=== PATIENT | male | born 1945 | race Caucasian/White ===

== ENCOUNTER 2023-03-31 08:34 | Outpatient (CLI) | payer OTHER, SELFPAY ==
--- NOTE | 2023-03-31 09:05 | ECG_ITS ---
Measurements Intervals [place] Rate: 54 P: 43 TX: 216 QRS: -1 QRSD: 114 T: 56 QT: 449 QTc: 426 Interpretive Statements SINUS BRADYCARDIA WITH FIRST DEGREE AV BLOCK ANTEROSEPTAL MYOCARDIAL INFARCTION , OF INDETERMINATE AGE [40+ ms Q WAVE IN V1-V4] ABNORMAL ECG NO PREVIOUS ECG AVAILABLE FOR COMPARISON Electronically Signed On 03-31-2023 11:11:37 CDT by Mic Michelle M.D.
[2023-03-31 09:49] LABS: Basophils Percent Auto 0.7 % (0.2-1.2); Eosinophils Absolute Auto 0.2 K/mm3 (0-0.3); Eosinophils Percent Auto 3.4 % (0-4.4); Hematocrit 45.4 % (42.0-52.0); Hemoglobin 14.8 g/dL (14.0-18.0); Immature Granulocyte Absolute 0.02 K/mm3 (0.00-0.031); Immature Granulocyte Percent A 0.3 % (0-0.5); Lymphocytes Absolute Auto 1.84 K/mm3 (0.9-3.2); Lymphocytes Percent Auto 30.1 % (18.3-44.2); Mean Corpuscular HGB Conc 32.6 g/dl (32-36); Mean Corpuscular Hemoglobin 30.3 pg (26-34); Mean Corpuscular Volume 92.8 fl (80-100); Mean Platelet Volume 12.2 fl (7.4-10.4); Monocytes Absolute Auto 0.5 K/mm3 (0.1-0.6); Monocytes Percent Auto 7.5 % (2.6-8.5); Neutrophils Absolute Auto 3.5 K/mm3 (1.3-6.7); Platelet Count Result 146 k/mm3 (150-375); Red Blood Count 4.89 M/mm3 (4.6-6.20); White Blood Count 6.1 K/mm3 (4.5-10.0)
[2023-03-31 09:56] LABS: Appearance Urine Clear (Clear); Bacteria Urine None Seen /hpf; Bilirubin Urine Negative (Negative); Blood Urine Negative (Negative); Color Urine Yellow (Yellow); Glucose Urine UA Negative (Negative); Ketones Urine Negative (Negative); Leukocyte Esterase Ur Negative LEU/UL (Negative); Nitrate Urine Negative (Negative); Non Pathogenic Casts 0-2; Protein Urine Trace mg/dL (Negative); RBC Urine 0-2 /hpf (0-2); Squamous Epithelial Cell Urine None seen /hpf (Few); Urobilinogen Urine 0.2 mg/dL (<2.0); WBC Urine 0-5 /hpf
[2023-03-31 10:01] LABS: Anion Gap 6 mmol/L (8-16); Blood Urea Nitrogen 21 mg/dL (9-20); Calcium 9.1 mg/dL (8.4-10.2); Carbon Dioxide 30 mmol/L (22-30); Chloride 102 mmol/L (98-107); Estimated Glomerular Filt Rate > 60; Glucose 119 mg/dL (65-110); Potassium 3.3 mmol/L (3.4-5.0); Sodium 138 mmol/L (137-145)
[2023-03-31 10:14] LABS: Add Urine Microscopic? YES
== END 2023-03-31 08:35 | disposition home or self-care (01) ==
PROVIDERS: PCP Family Medicine Sports Medicine; Visit Provider Orthopaedic Surgery
DX: M17.11 Unilateral primary osteoarthritis, right knee (principal); I10 Essential (primary) hypertension; R53.83 Other fatigue
CPT/HCPCS: 36415; 80048; 81001; 85025; 93005

== ENCOUNTER 2023-05-21 09:47 | Outpatient (CLI) | payer OTHER, SELFPAY ==
[2023-05-21 11:11] LABS: Basophils Absolute Auto 0.1 K/mm3 (0.0-0.1); Basophils Percent Auto 0.7 % (0.2-1.2); Eosinophils Absolute Auto 0.1 K/mm3 (0-0.3); Eosinophils Percent Auto 1.7 % (0-4.4); Hematocrit 46.4 % (42.0-52.0); Hemoglobin 15.3 g/dL (14.0-18.0); Immature Granulocyte Absolute 0.01 K/mm3 (0.00-0.031); Immature Granulocyte Percent A 0.1 % (0-0.5); Lymphocytes Absolute Auto 2.22 K/mm3 (0.9-3.2); Lymphocytes Percent Auto 29.7 % (18.3-44.2); Mean Corpuscular Hemoglobin 30.4 pg (26-34); Mean Corpuscular Volume 92.1 fl (80-100); Mean Platelet Volume 11.9 fl (7.4-10.4); Monocytes Absolute Auto 0.7 K/mm3 (0.1-0.6); Monocytes Percent Auto 9.2 % (2.6-8.5); Neutrophils Absolute Auto 4.4 K/mm3 (1.3-6.7); Neutrophils Percent Auto 58.6 % (45.5-73.1); Platelet Count Result 158 k/mm3 (150-375); Red Blood Count 5.04 M/mm3 (4.6-6.20); Red Cell Distribution Width 13.1 % (11.5-14.5); White Blood Count 7.5 K/mm3 (4.5-10.0)
[2023-05-21 11:19] LABS: Appearance Urine Clear (Clear); Bilirubin Urine Negative (Negative); Blood Urine Negative (Negative); Color Urine Yellow (Yellow); Glucose Urine UA Negative (Negative); Ketones Urine Negative (Negative); Leukocyte Esterase Ur Negative LEU/UL (Negative); Nitrate Urine Negative (Negative); Protein Urine Negative (Negative); Specific Grav Ur 1.012 (1.001-1.035); Urobilinogen Urine 0.2 mg/dL (<2.0); pH Urine 7.5 (5.0-9.0)
[2023-05-21 11:23] LABS: Hemoglobin A1C 5.9 % (<5.7)
[2023-05-21 11:25] LABS: Prothrombin Time 13.1 Seconds (11.1-14.7)
[2023-05-21 11:26] LABS: Partial Thromboplastin Time 27.5 SECONDS (22.3-36.8); Potassium 3.7 mmol/L (3.4-5.0)
[2023-05-21 11:27] LABS: Urine Cotinine NEGATIVE
[2023-05-21 11:37] LABS: Add Urine Microscopic? NO; Albumin Level 4.4 g/dL (3.5-5.1); Anion Gap 6 mmol/L (8-16); Blood Urea Nitrogen 24 mg/dL (9-20); Calcium 9.5 mg/dL (8.4-10.2); Carbon Dioxide 32 mmol/L (22-30); Chloride 101 mmol/L (98-107); Estimated Glomerular Filt Rate > 60; Glucose 112 mg/dL (65-110); Sodium 139 mmol/L (137-145)
== END 2023-05-21 09:48 | disposition home or self-care (01) ==
LOC: ANHSURGERY 09:50
PROVIDERS: PCP Family Medicine Sports Medicine; Visit Provider Orthopaedic Surgery
DX: M17.11 Unilateral primary osteoarthritis, right knee (principal); Z01.818 Encounter for other preprocedural examination
CPT/HCPCS: 80048; 80307; 81003; 82040; 83036; 85025; 85610; 85730; 87081

== ENCOUNTER 2023-05-28 09:27 | Outpatient (CLI) | payer OTHER, SELFPAY ==
--- NOTE | 2023-05-28 | EST_ITS ---
Patient Info Name: Lei Renee Age: 78 years : 1945 Gender: Male Ht: 72 in Wt: 200 lbs BSA: 2.16 m2 HR: 54 bpm BP: 177 / 86 mmHg Heart Rhythm: Sinus Rhythm Exam Date: 05/28/2023 10:31 AM Exam Location: Echo Lab Patient Status: Outpatient Admit Date: 05/28/2023 Staff Ordering Physician: Paulette, Albaro Malcolm MD Attending Provider: Paulette, Albaro Malcolm MD Exercise Technologist: Kayla Marquis RDCS Nurse: Qing Ty APN Exam Type: CA stress malachi w NM Study Info A regadenoson stress test was performed. Summary 1. Occasional PVCs. 2. No abnormal ST/T wave changes diagnostic of ischemia with Lexiscan. 3. Please correlate with nuclear medicine images, reported separately. 4. Stress test supervised by Qing Ty NP. Stress test interpreted by Ronit Wood MD. Protocol: Lexiscan Stress ECG Details Stage: REST Duration (min): 2 min : 19 sec HR (bpm): 54 SBP (mmHg): 177 DBP (mmHg): 86 Stage: REST Duration (min): 10 min : 0 sec HR (bpm): 58 SBP (mmHg): 177 DBP (mmHg): 86 Stage: STAGE 1 Duration (min): 1 min : 0 sec HR (bpm): 59 SBP (mmHg): 195 DBP (mmHg): 98 Stage: RECOVERY Duration (min): 1 min : 0 sec HR (bpm): 73 SBP (mmHg): 195 DBP (mmHg): 98 Stage: RECOVERY Duration (min): 2 min : 0 sec HR (bpm): 69 SBP (mmHg): 195 DBP (mmHg): 98 Stage: RECOVERY Duration (min): 3 min : 0 sec HR (bpm): 72 SBP (mmHg): 195 DBP (mmHg): 98 Stage: RECOVERY Duration (min): 4 min : 0 sec HR (bpm): 70 SBP (mmHg): 181 DBP (mmHg): 88 Stage: RECOVERY Duration (min): 5 min : 0 sec HR (bpm): 65 SBP (mmHg): 171 DBP (mmHg): 86 Stage: RECOVERY Duration (min): 6 min : 0 sec HR (bpm): --- SBP (mmHg): 171 DBP (mmHg): 86 Stage: RECOVERY Duration (min): 7 min : 0 sec HR (bpm): 65 SBP (mmHg): 171 DBP (mmHg): 86 Stage: RECOVERY Duration (min): 7 min : 36 sec HR (bpm): 63 SBP (mmHg): 171 DBP (mmHg): 86 Rest HR: 58 bpm Peak HR: 74 bpm Rest Sys BP: 177 mmHg Peak Sys BP: 195 mmHg Max Pred HR: 144 bpm % Max Pred HR: 51 % Target HR: 122 bpm Max RPP: 14,430 bpm*mmHg Total Time: 1 min : 0 sec Rest Bloom BP: 86 mmHg Peak Bloom BP: 98 mmHg Total Dose: 0.4 mg Resting ECG Sinus bradycardia. Stress ECG Sinus rhythm. No abnormal ST/T wave changes diagnostic of ischemia with Lexiscan. Arrhythmias Occasional PVCs. Report Signatures
--- NOTE | ~2023-05-28 | NM_ITS ---
EXAMINATION: NM malachi stress w perfusion DATE: 05/28/2023 11:57 INDICATION: Abnormal EKG for preoperative evaluation TECHNIQUE: Rest images were obtained following intravenous administration of 10 mCi Tc99m tetrofosmin (Myoview). The patient was infused intravenously with Lexiscan (Regadenoson). Then, 31 mCi Tc99m tet rofosmin (Myoview) was administered intravenously, and stress images were obtained. Data was reconstr ucted into short axis and horizontal and vertical long axis SPECT images. Gated SPECT images were als o obtained. COMPARISON: None. FINDINGS: There is no definite reversible or fixed perfusion abnormality to suggest ischemia or infar ction. There is normal left ventricular chamber size, wall motion and ejection fraction. Left ventr icular ejection fraction measures 66%. IMPRESSION: 1. Normal myocardial perfusion at rest and during stress. 2. Left ventricular ejection fraction measuring 66%. Reviewed, dictated and finalized at location A. [facility]
== END 2023-05-28 09:28 | disposition home or self-care (01) ==
PROVIDERS: PCP Family Medicine Sports Medicine; Visit Provider Family Medicine Sports Medicine
DX: R94.31 Abnormal electrocardiogram [ECG] [EKG] (principal)
CPT/HCPCS: 78452; 93017; A9502; J2785

== ENCOUNTER 2023-06-04 01:57 | Day surgery (SDC) | payer OTHER, SELFPAY ==
[2023-05-21 09:58] VITALS: BMI 27.6
--- NOTE | 2023-05-21 10:26 | PC.NURSE ---
Report to the Outpatient Waiting Room, entrance under the green pavilion located off [facility], at time ___0830____ on date _06/04/23 . Planned Procedure Time: _1030 . Time changes happen often and if your time is changed the preop area will call you the afternoon before. - You and your visitor will be asked to self-screen and do not enter if you have any COVID symptoms. - A mask is optional within the hospital at this time. Patients may have clear liquids (water, carbonated beverages, clear teas, apple juice) until 3 hours prior to surgery (7:30AM)with a maximum of 20 ounces. - No food from midnight until time of surgery - Infants may have breast milk until 4 hours before surgery, infant formula 6 hours prior to surgery. - Children will be allowed to drink immediately following surgery. If applicable, please bring a bottle or sippy cup to assist with drinking. Juice, water, soda, and popsicles are readily available. For infants on formula, please bring formula the day of surgery. Pacifiers are allowed. Take the following medications with a SIP of water the morning of surgery: ____AMLODIPINE, LEVOTHYROXINE DO NOT STOP ANY OF YOUR OTHER PRESCRIPTION MEDICATIONS PRIOR TO SURGERY ?EXCEPT THE FOLLOWING Medications to discontinue per physician __ASPIRIN AND IBUPROFEN PER DR MARSHALL. ALL VITAMINS AND SUPPLEMENTS 3 DAYS PRE OP.LAST DOSE 05/31/23 Date to take last dose Please no make-up, nail niuean, hairspray, perfume, deodorant, or body powder the day of surgery. No jewelry (including any body piercings) or valuables the day of surgery, leave them at home. Please take a shower or bath the night before, or the morning of, surgery with an antibacterial soap. Wear comfortable, loose fitting clothing. Children are encouraged to wear pajamas. - Jewelry must be removed prior to entering the operating room. Rings and piercings that are not removed may be cut off. - The hospital will not accept responsibility for valuables. - Please leave all valuables, including medications, at home the day of surgery. If you are going home after surgery, a licensed driver examiner must drive you home. - NO public transportation without another adult if you receive anesthesia. - We recommend that an adult stay with you for 24 hours following discharge. - We also recommend that you do not drive, make important decision, drink alcoholic beverages, or take any drugs that were not prescribed by your health care provider for at least 24 hours after your discharge time. For Pediatric surgeries, we recommend two adults accompany the child home. Follow any additional instructions given to you from your surgeon. If you or anyone in your household have experienced Covid symptoms in the past week, please notify your surgeon or the nurse liaison at the phone number below for possible testing. VERBAL AND WRITTEN instructions given to ___PT and asked if any additional questions and then verbalized understanding. Patient advised to call surgeon office or pre surgery nurse liaison [phone] if any additional questions.
[2023-05-21 11:16] VITALS: BP 182/82; PULSE 63; RESP 18; TEMP 37.4; O2SAT 98
[2023-06-04] VITALS (10 sets, daily range): BP systolic 139–165; BP diastolic 79–90; PULSE 60–95; RESP 12–18; TEMP 36.1–36.8; O2SAT 94–99
--- NOTE | ~2023-06-04 | XR_ITS ---
XR_[id number]_CR DATE: 06/04/2023 12:24 INDICATION: Postoperative examination TECHNIQUE: Postoperative AP and crosstable lateral views of right knee COMPARISON: None FINDINGS: Skin joshua are noted anteriorly. There is right total knee arthroplasty without patellar resurfacing. There is expected postoperative intra-articular air and subcutaneous emphysema. No fracture, dislocation, periosteal reaction or bone destruction. Femoral and popliteal artery calcification. IMPRESSION: Status post right total knee arthroplasty Reviewed, dictated and finalized at Location A. Reviewed, dictated and finalized at location B. [facility] [employer]
--- NOTE | 2023-06-04 07:16 | WPDHPUPDATE1 ---
History and Physical Update Update Date/Time: 06/04/23 07:16 History and Physical has been reviewed, including an updated exam of the patient. There are NO changes in the patient's condition. Risks, benefits, and alternatives have been discussed and questions answered. Patient agrees to proceed with procedure.
[2023-06-04] MEDS: ACETAMINOPHEN 500 MG TABLET 1000 MG PO (09:00)
[2023-06-04] MEDS: LACTATED RINGERS 1,000 ML 30 ML IV CONT (09:20)
[2023-06-04] MEDS: TRANEXAMIC ACID 1,000MG/ISO100 1,000 MG/100 ML BAG 200 MG IVPB (09:30)
--- NOTE | 2023-06-04 09:31 | WPDANESEPPF ---
Anes - Initial Pre Proc Eval Procedure: Operation Date: 06/04/23 10:30 Proposed Procedures p Right Total Knee Arthroplasty - Nicolás Schroeder MD Date/Time: 06/04/23 09:31 Surgeon: Nicolás Schroeder MD Pre Op Diagnosis: right knee djd Patient Data Age: 78 Gender: M Height: 1.83 m Weight: 92.4 kg Last Vital Signs Temp 37.4 C 05/21/23 11:16 Pulse 63 05/21/23 11:16 Resp 18 05/21/23 11:16 BP 182/82 H 05/21/23 11:16 Pulse Ox 98 05/21/23 11:16 O2 Del Method Room Air 05/21/23 11:16 Allergies Allergy/AdvReac Type Severity Reaction Status Date / Time No Known Allergies Allergy Verified 06/04/23 08:51 Home Medications Medication Instructions Recorded Confirmed Type amlodipine 5 mg tablet 7.5 mg PO DAILY 05/14/22 06/04/23 History benazepril 40 mg tablet 40 mg PO BID 05/14/22 06/04/23 History cholecalciferol (vitamin D3) 25 25 mcg PO DAILY 05/14/22 06/04/23 History mcg (1,000 unit) capsule hydrochlorothiazide 25 mg tablet 25 mg PO DAILY 05/14/22 06/04/23 History levothyroxine 150 mcg capsule 150 mcg PO DAILY 05/14/22 06/04/23 History omeprazole 20 mg capsule,delayed 20 mg PO DAILY 05/14/22 06/04/23 History release trazodone 50 mg tablet 25 mg PO QHS PRN Insomnia 05/14/22 06/04/23 History aspirin 81 mg tablet,delayed 81 mg PO DAILY 05/21/23 06/04/23 History release (Adult Low Dose Aspirin) chlorhexidine gluconate 4 % 1 applic topical ONCE #237 mL 05/21/23 06/04/23 Rx topical liquid (Hibiclens) ibuprofen 600 mg tablet 600 mg PO Q6H PRN Pain 05/21/23 06/04/23 History lovastatin 20 mg tablet 40 mg PO DAILY 05/21/23 06/04/23 History Patient hx anesthesia problems: none Family hx anesthesia problems: none Results Review: All pre-operative results and documents have been reviewed as part of the pre-operative evaluation. [facility] [place] Past Medical History Medical History Arthritis of right knee Hypertension Thyroid disorder Surgical History Surgical History History of cataract extraction 2017- left eye History of colon surgery 2012- right colectomy History of left knee replacement 2013 - Dr. Alston Family History Family History Mother Hypertension Social History Social History Smoking packs per day: 1 Smoking cigarettes per day: 20.0 Years smoked: 20 Smoking pack-years: 20.00 Smoking status: Former smoker Tobacco type: cigarettes Smoking end date: 06/02/85 Additional smoking assessment comments: DENIES ANY FORM OF TOBACCO USE Alcohol intake: current Drinks per week: 21 Substance use: never Living arrangements: with family Gender identity (if verbalized by the patient): Male Spiritual care concerns: No Anes - Eval Final PreProcedure Day of Procedure 06/04/23 09:31 Patient weight: overweight Heart: regular rate and rhythm Lungs: clear to auscultation Airway: Mallampati scale class II Neurological: alert and oriented Last oral intake: >/= 8 hours ASA classification: II Emergent: no Anesthetic plan: proceed Anesthesia type and monitoring: general LMA and standard monitoring Results Review: All pre-operative results and documents have been reviewed as part of the pre-operative evaluation. Informed Consent: The patient's anesthetic plan and its attendant risks and benefits were discussed with the patient/family/POA. Questions were solicited and answers provided to the satisfaction of the patient/family/POA.
--- NOTE | 2023-06-04 09:47 | WPDANESPNB ---
Anes - Peripheral Nerve Block Date/Time: 06/04/23 09:47 I have discussed with the patient/family/POA the placement of a peripheral nerve block for post-operative pain management, including associated risks, benefits, complications, and side effects. Alternative methods of post-operative analgesia were detailed. Questions were solicited and answers provided to the satisfaction of the patient/family/POA. Time-Out: A pre-procedural Time-Out was completed immediately before starting the procedure and confirmed: Patient Identification, Site, Procedure, Patient Position and the Availability of Requisite Equipment. Clinical Indications: Acute post-operative pain management requested by the operative surgeon. Nerve Block Insertion Note Anes-nerve block: adductor canal right Patient position: supine Skin prep: chlorhexidine Needle: 22 gauge, stimulating, insulated echogenic needle. Needle length: 80 mm Technique: ultrasound Injectate: bupivacaine 0.5% with epi 5 mcg/ml (30cc no epi) Observations: tolerated well Complications: none Procedure start time:: 945 Procedure end time:: 950
[2023-06-04] MEDS: ceFAZolin 2 GM/D5W 50 ML 2 GM/50 ML BAG IVPB ×2 (09:55→17:22)
[2023-06-04] MEDS: TRANEXAMIC ACID 1,000 MG/10 ML AMPUL 1000 MG IV PUSH (11:38)
--- NOTE | 2023-06-04 12:04 | P.OP_ITS ---
Procedure Note - Detailed Date of Procedure 06/04/23 Pre-op Diagnosis right knee djd Post-op Diagnosis Same Procedure Performed R TKA Surgeon Nicolás Schroeder MD Anesthesia General Description of Procedure THE RIGHT KNEE WAS PREPPED AND DRAPED IN THE STERILE FASHION. THERE WAS A 10 DEGREE FLEXION CONTRACTURE. A MIDLINE SKIN INCISION WAS MADE. A MEDIAL PARAPATELLAR ARTHROTOMY WAS MADE. THE PATELLA WAS EVERTED. THERE WAS TRICOMPARTMENT DJD. THERE WAS MINIMAL PATELLA DJD. AN INTRAMEDULLARY SHER WAS PLACED IN THE FEMUR. A DISTAL FEMORAL CUT WAS MADE IN 5 DEGREES OF VALGUS REMOVING APPROXIMATELY 9 MM OF BONE FROM THE DISTAL FEMUR. THE FEMUR WAS SIZED TO 65. A 65 FEMORAL CUTTING BLOCK WAS PLACED IN 3 DEGREES OF EXTERNAL ROTATION AND IN ALIGNMENT WITH GRIFFIN'S LINE AND THE TRANSEPICONDYLAR AXIS. ANTERIOR POSTERIOR AND CHAMFER CUTS WERE MADE. THE CUTS WERE EXCELLENT. NEXT AN INTRAMEDULLARY CUTTING GUIDE WAS PLACED IN THE TIBIA. A TRANS TIBIAL CUT WAS MADE ALONG THE LONG AXIS OF THE TIBIA. APPROXIMATELY 10 MM OF BONE WAS REMOVED FROM THE HIGH SIDE OF THE TIBIA. THE TIBIA WAS THEN PLANED TO A SMOOTH SURFACE. POSTERIOR FEMORAL OSTEOPHYTES WERE REMOVED FROM THE FEMORAL CONDYLES. A 75 TIBIAL TRIAL WAS PLACED IN ALIGNMENT WITH THE 1/3 MEDIAL ASPECT OF THE TIBIAL TUBERCLE. THEN A 65 FEMORAL TRIAL COMPONENT WAS PLACED. BOTH HAD EXCELLENT FITS. EVENTUALLY A 11 MM CR POLYETHYLENE TRIAL COMPONENT WAS PLACED. THE KNEE WAS TAKEN THROUGH A RANGE OF MOTION. KNEE LIGAMENT BALANCING WAS PREFORMED. THE KNEE CAME OUT TO FULL EXTENSION. THERE WAS NO ABNORMAL TILT TO THE PATELLA. THERE WAS GOOD A/P AND VARUS/VALGUS STABILITY. THERE WAS NO EXCESSIVE ROLL BACK WITH FLEXION. THE TRIAL COMPONENTS WERE REMOVED. THEN A 65 FEMORAL COMPONENT AND 75 TIBIAL COMPONENT WITH AN 11 CR POLYETHYLENE COMPONENT WERE CEMENTED INTO PLACE. ONCE THE CEMENT WAS HARD THE KNEE WAS TAKEN THROUGH A ROM AGAIN AND FOUND TO BE STABLE WITH NO PATELLA TILT NO EXCESSIVE ROLL BACK WITH FLEXION AND GOOD STABILITY WITH COMPLETE AND FULL EXTENSION. THE KNEE WAS IRRIGATED WITH STERILE BETADINE AND WATER FOR ABOUT 3 MINUTES. THE BLEEDERS WERE CAUTERIZED. THE ARTHROTOMY WAS REPAIRED WITH NUMBER 1 VICRYL. THE SUB CUTANEOUS LAYER WITH 2-0 VICRYL AND THE SKIN WITH SYLVIA. THE WOUND WAS WASHED AND A STERILE DRESSI NG WAS APPLIED. PATIENT WAS EXTUBATED. Estimated Blood Loss -150.0 Pathology None sent Complications No immediate complications Condition Stable Disposition PACU
--- NOTE | 2023-06-04 13:30 | ADMGEN ---
This patient, Lei Renee, was admitted to [facility] Surg Room 328-01. Patient/family oriented to hospital policies and general routines including ID bracelet, bed and alarms, visiting hours, pain management, procedures, bathroom and other care routines, personal items, smoking policy, room service/diet, and visiting hours. Information on how to activate the Rapid Response Team has been discussed. Patient/Family are encouraged to report perceived risks to care and to ask questions if they do not understand what they are told or what they should do.
[2023-06-04] MEDS: SENNA/DOCUSATE SODIUM TABLET 2 TAB PO (16:02)
[2023-06-04] MEDS: CELECOXIB 200 MG CAPSULE PO (16:02)
[2023-06-04] MEDS: oxyCODONE/ACETAMINOPHEN (*CRX) 5-325 MG TABLET 1 TABLET PO (16:02)
[2023-06-04] MEDS: ASPIRIN 325 MG ENTERIC TABLET PO (21:00)
[2023-06-05] MEDS: oxyCODONE/ACETAMINOPHEN (*CRX) 5-325 MG TABLET 1 TABLET PO ×3 (01:09→13:07)
[2023-06-05] MEDS: ceFAZolin 2 GM/D5W 50 ML 2 GM/50 ML BAG IVPB ×2 (01:10→11:21)
[2023-06-05 04:35] VITALS: BP 146/73; PULSE 65; RESP 18; TEMP 36.2; O2SAT 94
[2023-06-05 06:46] LABS: Basophils Absolute Auto 0.1 K/mm3 (0.0-0.1); Basophils Percent Auto 0.4 % (0.2-1.2); Eosinophils Percent Auto 0.3 % (0-4.4); Hematocrit 37.4 % (42.0-52.0); Hemoglobin 12.6 g/dL (14.0-18.0); Immature Granulocyte Absolute 0.05 K/mm3 (0.00-0.031); Immature Granulocyte Percent A 0.4 % (0-0.5); Lymphocytes Absolute Auto 1.87 K/mm3 (0.9-3.2); Lymphocytes Percent Auto 16.1 % (18.3-44.2); Mean Corpuscular HGB Conc 33.7 g/dl (32-36); Mean Corpuscular Hemoglobin 30.7 pg (26-34); Mean Corpuscular Volume 91.2 fl (80-100); Mean Platelet Volume 12.1 fl (7.4-10.4); Monocytes Absolute Auto 1.2 K/mm3 (0.1-0.6); Monocytes Percent Auto 10.2 % (2.6-8.5); Neutrophils Absolute Auto 8.5 K/mm3 (1.3-6.7); Neutrophils Percent Auto 72.6 % (45.5-73.1); Platelet Count Result 155 k/mm3 (150-375); Red Cell Distribution Width 12.9 % (11.5-14.5); White Blood Count 11.7 K/mm3 (4.5-10.0)
[2023-06-05] MEDS: LEVOTHYROXINE SODIUM 150 MCG TABLET PO (06:49)
[2023-06-05 06:57] LABS: Anion Gap 10 mmol/L (8-16); Blood Urea Nitrogen 17 mg/dL (9-20); Carbon Dioxide 25 mmol/L (22-30); Chloride 100 mmol/L (98-107); Estimated CRCL calculation 61 ml/min; Estimated Glomerular Filt Rate > 60; Glucose 129 mg/dL (65-110); Potassium 3.7 mmol/L (3.4-5.0); Sodium 135 mmol/L (137-145)
[2023-06-05 07:03] VITALS: BP 145/70; PULSE 55; RESP 16; TEMP 36.8; O2SAT 97
[2023-06-05 09:09] VITALS: O2SAT 97
[2023-06-05] MEDS: LOVASTATIN 20 MG TABLET 40 MG PO (09:13)
[2023-06-05] MEDS: amLODIPine BESYLATE 2.5 MG TABLET 7.5 MG PO (09:13)
[2023-06-05] MEDS: CHOLECALCIFEROL 1,000 UNITS TABLET 1000 UNITS PO (09:14)
[2023-06-05] MEDS: lisinopriL 20 MG TABLET 40 MG PO (09:14)
[2023-06-05] MEDS: PANTOPRAZOLE 40 MG TABLET PO (09:14)
[2023-06-05] MEDS: SENNA/DOCUSATE SODIUM TABLET 2 TAB PO (09:15)
[2023-06-05] MEDS: ASPIRIN 325 MG ENTERIC TABLET PO (09:15)
[2023-06-05] MEDS: CELECOXIB 200 MG CAPSULE PO ×2 (09:15→16:55)
[2023-06-05] MEDS: hydroCHLOROthiazide 25 MG TABLET PO (09:15)
--- NOTE | 2023-06-05 09:37 | PM.PNORT ---
Progress Note: A&P Assessment and Plan (1) S/P total knee arthroplasty: Qualifiers: Laterality: right Qualified Code(s): Z96.651 - Presence of right artificial knee joint Code(s): Z96.659 - Presence of unspecified artificial knee joint Status: Acute Assessment and Plan: POD #1 : Right TKA Continue PT/OT. WBAT. Walker. HIGH FALL RISK. Continue pain control. Ice Knee. Protect skin. DVT prophylaxis with Aspirin. SCDs. Incentive Spirometry Use reviewed. Monitor Dressing. Change prior to discharge. Bowel Regimen. Dispo: Home with Home Health pending progress with PT/OT Plan Reviewed history, exam, radiographs and current labs with attending MD and patient's surgeon, Dr. Schroeder, who agrees with current plan as indicated above. No further recommendations from Dr. Schroeder at this time. Subjective Subjective Date/Time Seen: 06/05/23 09:37 Post Op day: 1 Interval history: POD #1: Right TKA Patient doing well. Up working with OT at the time of exam. Concerned about some bleeding on the dressing. Otherwise, no concern. Hopeful for discharge home today. Review of Systems Review of Systems: All systems reviewed & are unremarkable except as noted in HPI and below Constitutional: Constitutional: Denies fever(s) and Denies headache(s) ENT: Denies headache(s) Cardiovascular: Cardiovascular: Denies chest pain, Denies diaphoresis, Denies palpitations and Denies dyspnea Respiratory: Respiratory: Denies dyspnea Gastrointestinal: Gastrointestinal: Denies abdominal pain, Denies constipation, Denies nausea and Denies vomiting Genitourinary: Genitourinary: Denies dysuria and Reports nocturia Musculoskeletal: Musculoskeletal: Reports arthralgias (Right Knee ) and Reports joint swelling (Right Knee ) Neurologic: Denies headache(s) Endocrine: Endocrine: Denies palpitations Exam Const: General: comfortable and no acute distress Resp: Effort & Inspection: normal respiratory effort Cardio: Rate: regular rate Rhythm: regular rhythm GI: GI Palp: Yes Soft to palpation, No Tenderness to palpation present (GI) and No Guarding due to palpation present (GI) Skin: General skin exam: wounds noted Wounds: wounds noted Other: Incision c/d/i. No surrounding redness/warmth. No hematoma. Mild ecchymosis. No wound dehiscence Neuro: Cognition (Neuro): normal cognition Other: NV intact aside from block. Moves toes. Sensation intact to light touch. +ankle dorsiflexion/plantarflexion. Extrem: Right lower extremity: normal to inspection, knee Details: tenderness (diffuse, mild ) Location: of the patella, swelling (diffuse, consistent with surgical intervention ), abnormal ROM Details: pain with active ROM during, pain with passive ROM during and with range as follows (limited due to recent surgical intervention ); able to extend lower leg actively and ecchymosis (mild ), lower leg (Negative Joanne's Sign ) Details: normal to inspection; no erythema and no tenderness, ankle (+ankle dorsiflexion/plantarflexion ) Details: normal to inspection, no edema and normal ROM; no tenderness, no swelling and no ecchymosis and foot Details: normal capillary refill, normal to inspection, vascular exam Details: dorsalis pedis pulse present and motor-sensory exam Details: light-touch normal; no tenderness Left lower extremity: normal to inspection Psych: Mental Status: mental status grossly normal Objective Data Vital Signs Vital Signs: Vital Signs - 24 hr 06/04/23 09:43 06/04/23 12:15 06/04/23 12:30 Temperature 36.8 C 36.1 C L Pulse Rate 60 95 78 Respiratory Rate 16 18 12 Blood Pressure 161/79 H 148/88 H 139/82 Pulse Oximetry 96 97 99 Oxygen Delivery Room Air Simple Face Mask Room Air Oxygen Flow Rate 10 Fraction of Inspired Oxygen 06/04/23 12:45 06/04/23 13:00 06/04/23 13:15 Temperature Pulse Rate 75 77 74 Respiratory Rate 13 14 15 Blood Pressure 163/88 H 154/90 H 165/89 H Pulse
--- NOTE | 2023-06-05 10:58 | WPDANESPN ---
Anes - Prog Note Post-Op Date/Time: 06/05/23 10:58 Vital Signs: Last Vital Signs Temp 36.8 C 06/05/23 07:03 Pulse 55 L 06/05/23 07:03 Resp 16 06/05/23 07:03 BP 145/70 H 06/05/23 07:03 Pulse Ox 97 06/05/23 09:09 O2 Del Method Room Air 06/05/23 09:09 O2 Flow Rate 2 06/04/23 13:33 FiO2 21 06/05/23 09:09 Pain Score (VAS): 4 I/O: Intake & Output 06/04/23 06/05/23 06/05/23 23:59 07:59 15:59 Intake Total 530 688 360 Output Total 950 Balance 530 -262 360 Laboratory Tests 06/05/23 06:18 06/05/23 06:18 06/05/23 06:18 WBC 11.7 H RBC 4.10 L Hgb 12.6 L Hct 37.4 L MCV 91.2 MCH 30.7 MCHC 33.7 RDW 12.9 Plt Count 155 MPV 12.1 H Immature Gran % (Auto) 0.4 Neut % (Auto) 72.6 Lymph % (Auto) 16.1 L [place] % (Auto) 10.2 H Eos % (Auto) 0.3 Baso % (Auto) 0.4 Lymph # (Auto) 1.87 [place] # (Auto) 1.2 H Eos # (Auto) 0.0 Baso # (Auto) 0.1 Abs Immat Gran (auto) 0.05 H Absolute Neuts (auto) 8.5 H Absolute Nucleated RBC 0.0 Nucleated RBC % 0.0 Sodium 135 L Potassium 3.7 Chloride 100 Carbon Dioxide 25 Anion Gap 10 BUN 17 Creatinine 1.00 Estim Creat Clear Calc 61 Estimated GFR > 60 Glucose 129 H Calcium 9.0 Patient Feedback: Patient satisfied with anesthetic care.
[2023-06-05 11:03] VITALS: BP 129/65; PULSE 71; RESP 16; TEMP 37.5; O2SAT 97
[2023-06-05 15:03] VITALS: BP 99/66; PULSE 66; RESP 16; TEMP 36.8; O2SAT 96
--- NOTE | 2023-06-05 16:09 | PM.DS ---
DS: Admitting Diagnosis Discharge Date 06/05/2023 Admitting Diagnosis Right Knee DJD DS: Discharge Diagnosis Discharge Diagnosis (1) S/P total knee arthroplasty: Qualifiers: Laterality: right Qualified Code(s): Z96.651 - Presence of right artificial knee joint Code(s): Z96.659 - Presence of unspecified artificial knee joint Status: Acute Assessment and Plan: POD #1 : Right TKA Continue PT/OT. WBAT. Walker. HIGH FALL RISK. Continue pain control. Ice Knee. Protect skin. DVT prophylaxis with Aspirin. SCDs. Incentive Spirometry Use reviewed. Monitor Dressing. Change prior to discharge. Bowel Regimen. Dispo: Home with Home Health pending progress with PT/OT Plan Reviewed history, exam, radiographs and current labs with attending MD and patient's surgeon, Dr. Schroeder, who agrees with current plan as indicated above. No further recommendations from Dr. Schroeder at this time. DS: Summary Hospital Course Reason for hospitalization: Right TKA Hospital Course: 78 year old male admitted s/p Right TKA for postoperative medical management, pain control and mobilization with PT/OT. Patient progressed well with PT/OT. Pain and vitals remained stable throughout. The patient has been cleared to be discharged home with home health at this time. All discharge care instructions reviewed at depth. New medications reviewed. Follow up planned for 3 weeks in the outpatient orthopedic clinic with Dr. Schroeder. Dr. Schroeder in agreement with safe discharge at this time. Status at Discharge Functional status at discharge: uses cane/walker Overall status at discharge: patient is progressing back to baseline Time Spent with Patient Time attestation: Total time spent providing and/or coordinating discharge services: Exam Const: General: comfortable and no acute distress Resp: Effort & Inspection: normal respiratory effort Cardio: Rate: regular rate Rhythm: regular rhythm Skin: General skin exam: wounds noted Wounds: wounds noted Other: Incision c/d/i. No surrounding redness/warmth. No hematoma. Mild ecchymosis. No wound dehiscence Neuro: Cognition (Neuro): normal cognition Other: NV intact aside from block. Moves toes. Sensation intact to light touch. +ankle dorsiflexion/plantarflexion. Extrem: Right lower extremity: normal to inspection, knee Details: tenderness (diffuse, mild ) Location: of the patella, swelling (diffuse, consistent with surgical intervention ), abnormal ROM Details: pain with active ROM during, pain with passive ROM during and with range as follows (limited due to recent surgical intervention ); able to extend lower leg actively and ecchymosis (mild ), lower leg (Negative Joanne's Sign ) Details: normal to inspection; no erythema and no tenderness, ankle (+ankle dorsiflexion/plantarflexion ) Details: normal to inspection, no edema and normal ROM; no tenderness, no swelling and no ecchymosis and foot Details: normal capillary refill, normal to inspection, vascular exam Details: dorsalis pedis pulse present and motor-sensory exam Details: light-touch normal; no tenderness Left lower extremity: normal to inspection Psych: Mental Status: mental status grossly normal DS: Data Data Completed and Pending Labs on day of discharge: Labs from last 24 hours 06/05/23 06:18 WBC 11.7 H RBC 4.10 L Hgb 12.6 L Hct 37.4 L MCV 91.2 MCH 30.7 MCHC 33.7 RDW 12.9 Plt Count 155 MPV 12.1 H Immature Gran % (Auto) 0.4 Neut % (Auto) 72.6 Lymph % (Auto) 16.1 L Towns % (Auto) 10.2 H Eos % (Auto) 0.3 Baso % (Auto) 0.4 Lymph # (Auto) 1.87 Towns # (Auto) 1.2 H Eos # (Auto) 0.0 Baso # (Auto) 0.1 Abs Immat Gran (auto) 0.05 H Absolute Neuts (auto) 8.5 H Absolute Nucleated RBC 0.0 Nucleated RBC % 0.0 Sodium 135 L Potassium 3.7 Chloride 100 Carbon Dioxide 25 Anion Gap 10 BUN 17 Creatinine 1.00 Estim Creat Clear Calc 61 Estimated GFR > 60 Glucose 129
--- NOTE | 2023-06-05 19:38 | PC.NURSE ---
This RN pulled a diazepam in the AM to give to pt. At shift change, the oncoming RN found the diazepam lodged between the keyboard and the arm rest. The WOW's hydraulic lift is not functioning. Called [facility] in pharmacy who asked me to bring the medication down to return it to their vault under the patient name.
== END 2023-06-05 17:15 | disposition home health service (06) ==
LOC: ANHSURGERY 08:34 → ANH3MEDSUR 13:24
PROVIDERS: PCP Family Medicine Sports Medicine; Visit Provider Orthopaedic Surgery
PROC: (CPT 27447; principal; 2023-06-04 10:30)
DX: M17.11 Unilateral primary osteoarthritis, right knee (principal); I10 Essential (primary) hypertension; E07.9 Disorder of thyroid, unspecified; G89.18 Other acute postprocedural pain; Z79.82 Long term (current) use of aspirin; Z90.49 Acquired absence of other specified parts of digestive tract; Z87.891 Personal history of nicotine dependence
CPT/HCPCS: 64447; 27447; 36415; 73560; 78452; 80048; 80307; 81003; 82040; 83036; 85025; 85610; 85730; 86850; 86900; 86901; 87081; 93017; 97110; 97116; 97161; 97165; 97530; 97535; A9270; A9502; C1713; C1776; J0171; J0360; J0690; J1100; J1885; J2270; J2371; J2405; J2704; J2785; J2795; J3010; J7120

== ENCOUNTER 2023-09-09 08:45 | Outpatient (RCR) | payer OTHER, SELFPAY ==
--- NOTE | 2023-07-02 11:19 | PTOPEVAL1 ---
Assessment and note entered by Binta Esquivel, PT Evaluation Information Assessment Status Evaluation Diagnosis Right total knee replacement, edema, weakness oth.abnormalities of gait and mobility stiffness of right knee Onset 06/04/23 Subjective Information In hospital one day. Discharged straight home, had home health until last Friday. Had joshua removed on Friday and Friday last week. Ambulation without AD but couldn't walk down hill. Golfing and swimming 3x a week. Gave up swimming due to shoulder pain. Is planning on returning to golf Is walking 500 ft hourly but knee will feel swollen after that. Waking up often at night due to discomfort. Puts on ice pack Reported Pain Level Pain Score 2: Self Report Assessment PT Clinical Summary Pt presents for PT s/p right total knee replacement on 06/04/23. Presents with deficits in active and passive ROM, flexibility, strength, mobility and gait, and edema. Pt will greatly benefit from physical therapy to address deficits and return to PLOF. Plan of Care Interventions Electrical Stimulation,Gait Training,Hot Pack/Cold Pack,Manual Therapy,Neuro Re-education,Patient/ Caregiver Educati,Therapeutic Activities, Therapeutic Exercise,Self-Care/Home Management PT Services Indicated Yes Treatment Frequency and 1-2x weekly x 18 visits Duration These treatments will address the objective and functional deficits as defined above. The patient will be advanced safely and appropriately in order for the patient to progress towards his/her prior level of function. Additional exercises will be introduced and as well as a comprehensive home exercise program upon discharge, if needed, ?to ensure carryover of functional gains achieved in the clinic. This treatment plan has been reviewed and agreement upon by the patient.
--- NOTE | 2023-07-02 11:20 | OPREHPOC ---
Outpatient Therapy Plan of Care This is a Multidisciplinary Plan of Care that may contain components documented by all disciplines (PT, OT, and ST.) PT Problem 1 PT Problem #1 Knowledge Deficit PT Goal 1 Goal Pt will be independent in HEP Pt will verbalize understanding of diagnosis and prognosis Target Visit 8 PT Problem 2 PT Problem #2 Impaired Range of Motion PT Goal 1 Goal Pt will demo active ROM of 5-100 Target Visit 8 PT Goal 2 Goal Pt will demo AROM 0-130 Target Visit 18 PT Problem 3 PT Problem #3 Pain PT Goal 1 Goal Pt will report greatest pain level at 5/10 or less to improve ADLs and activities Target Visit 8 PT Goal 2 Goal Pt will report highest level of pain at 2/10 to improve functional mobility and activity level Target Visit 16 PT Problem 4 PT Problem #4 Edema PT Goal 1 Goal Pt will demo decreased of 1-1.5 cm in each measured location to show improvement in swelling Target Visit 8 PT Goal 2 Goal Pt will demo swelling within 1.5 cm of the unaffected leg to show improvements to return to prior level Target Visit 18 PT Problem 5 PT Problem #5 Impaired Gait PT Goal 1 Goal Pt will demo ability to appropriately use single point cane for community ambulation Target Visit 8 PT Goal 2 Goal Pt will demo normalized gait without AD Target Visit 18
--- NOTE | 2023-08-01 15:50 | PTOPPROG ---
Assessment and note entered by Binta Esquivel, PT Assessment Status Progress Report Diagnosis Right total knee replacement Therapy condition weakness, edema, stiffness right knee, oth. abnormalities of gait and mobility Onset 06/04/23 Subjective Information Pt reports he was able to play golf 2 days in a row, first day played 15 holes and second day 9 holes. Noted some slight stiffness the following day but not too much. Is now walking 6 blocks daily when weather permits . Has cane with him if he needs it but mostly is walking without. Went to [facility] and walked the track once. Self-perceived improvement: 75% Assessment PT Clinical Summary Pt has attended therapy consistently for his right total knee replacement. Swelling has reduced significantly, ROM, gait, and tolerance to activities has greatly improved. Cont to demo less than 0-120 active and passive ROM, cont to demo knee flexion throughout gait cycle. Pt will benefit from continuation of POC in order to continue improvement and bring patient to highest functional level for ADLs and activities Plan of Care Interventions Electrical Stimulation,Gait Training,Hot Pack/Cold Pack,Manual Therapy,Neuro Re-education,Patient/ Caregiver Educati,Therapeutic Activities, Therapeutic Exercise,Self-Care/Home Management PT Services Indicated Yes Treatment Frequency and 1-2x weekly x 8 visits Duration These treatments will address the objective and functional deficits as defined above. The patient will be advanced safely and appropriately in order for the patient to progress towards his/her prior level of function. Additional exercises will be introduced and as well as a comprehensive home exercise program upon discharge, if needed, ?to ensure carryover of functional gains achieved in the clinic. This treatment plan has been reviewed and agreement upon by the patient.
--- NOTE | 2023-09-09 13:10 | PTOPPROG ---
Assessment and note entered by Binta Esquivel, PT Assessment Status Progress Report Diagnosis Right total knee replacement Therapy conditions edema pain in right knee Onset 06/04/23 Subjective Information Pt reports knee still wakes him at night 2-3 times a night due to pain. States was able to play 18 holes of golf yesterday. Sitting for short or long periods is painful when getting up. States is really careful with getting up. States still swells, worsens through the day, right calf will be like a rock by the end of the day. When the swelling goes down gets a nerve like sharp pain. RTD 09/25/23 No longer taking pain medication. Is still icing once daily at night for about half hour and when waking at night. Reports knee is slowing him down in the morning especially due to pain and stiffness. Self-percieved improvement: 75% Can do everything but not without pain Assessment PT Clinical Summary Pt presents 3 months s/p right total knee replacement. He has since advanced from 2w-w to no AD with ambulation, has been able to return to all his activities though he states with pain, has advanced to active ROM 2-128 (passive flexion 135 ), strength is above 4+/5 quads and hamstrings. He has not met his goals for swelling reduction and pain reduction. He was advised to increase cryotherapy on his highly active days. He was also educated in high level activities causing inflammation. Pt is to return to MD in ~two weeks. Will await MD orders to proceed with therapy versus discharge. Plan of Care Interventions Electrical Stimulation,Gait Training,Hot Pack/Cold Pack,Manual Therapy,Neuro Re-education,Patient/ Caregiver Educati,Therapeutic Activities, Therapeutic Exercise,Self-Care/Home Management PT Services Indicated Yes Treatment Frequency and 1-2x weekly x 8 visits Duration These treatments will address the objective and functional deficits as defined above. The patient will be advanced safely and appropriately in order for the patient to progress towards his/her prior level of function. Additional exercises will be introduced and as well as a comprehensive home exercise program upon discharge, if needed, ?to ensure carryover of functional gains achieved in the clinic. Thi
== END 2023-09-11 13:18 | disposition home or self-care (01) ==
LOC: ANHHIPT 08:45
PROVIDERS: PCP Family Medicine Sports Medicine; Visit Provider Orthopaedic Surgery
DX: Z47.1 Aftercare following joint replacement surgery (principal); Z96.651 Presence of right artificial knee joint
CPT/HCPCS: 97014; 97016; 97110; 97112; 97116; 97140; 97162; 97530; 97750; G0283